=== PATIENT | male | born 2000 | race Hispanic/Latino ===

== ENCOUNTER 2024-02-13 16:47 | Emergency (ER) | payer OTHER, SELFPAY ==
[2024-02-13 16:57] VITALS: BP 115/61; PULSE 105; RESP 18; TEMP 38.6; O2SAT 99; BMI 25.0
[2024-02-13 17:11] VITALS: TEMP 38.3
[2024-02-13] MEDS: ACETAMINOPHEN 325 MG TABLET 975 MG PO (17:11)
[2024-02-13 17:23] LABS: Strep Grp A by PCR Rapid Negative (Negative)
--- NOTE | 2024-02-13 17:33 | ED.URI ---
HPI - URI/Sore Throat <Miranda Howard PA-C - Last Filed: 02/13/24 18:59> General Chief Complaint: Upper Respiratory Symptoms Stated Complaint: States swollen tonsils, unable to eat or drink Time Seen by Provider: 02/13/24 17:18 Source: patient Mode of arrival: Ambulatory History of Present Illness HPI Narrative: 23-year-old male presents to the ED with 5 days of sore throat, fever, nausea. Patient is also complaining of some back pain. Patient states he has frequent episodes of strep throat. Patient denies rhinorrhea, cough, chest pain, shortness of breath, vomiting, abdominal pain, lightheadedness, dizziness, syncope. Patient is controlling his secretions well. Related Data Previous Rx's Medication Instructions Recorded penicillin V potassium 500 mg 500 mg PO BID 10 days #20 tabs 02/13/24 tablet Allergies Allergy/AdvReac Type Severity Reaction Status Date / Time No Known Drug Allergies Allergy Verified 02/13/24 16:56 Review of Systems <Miranda Howard PA-C - Last Filed: 02/13/24 18:59> Constitutional Constitutional: Denies chills, Denies fatigue, Reports fever(s), Denies frequent falls, Denies lethargy and Denies weakness Eyes Eyes: Denies change in vision, Denies eye discharge, Denies irritation and Denies loss of vision ENT Ears, Nose, Mouth, and Throat: Denies change in voice, Denies dizziness, Denies neck pain, Reports sore throat and Denies throat swelling Cardiovascular Cardiovascular: Denies chest pain, Denies irregular heart rhythm, Denies lightheadedness, Denies palpitations, Denies dyspnea, Denies dyspnea on exertion and Denies orthopnea Respiratory Respiratory: Denies cough, Denies dyspnea, Denies dyspnea on exertion and Denies wheezing Gastrointestinal Gastrointestinal: Denies abdominal pain, Denies change in bowel habits, Denies diarrhea, Reports nausea and Denies vomiting Musculoskeletal Musculoskeletal: Reports back pain, Denies neck pain and Denies numbness Integumentary/Breasts Skin/Breast: Denies pruritus, Denies erythema, Denies rash and Denies wounds Neurologic Neurologic: Denies behavioral changes, Denies confusion, Denies dizziness, Denies frequent falls, Denies loss of vision, Denies numbness and Denies weakness Psychiatric Psychiatric: Denies anxiety, Denies behavioral changes, Denies confusion, Denies depression, Denies homicidal ideation and Denies suicidal ideation Endocrine Endocrine: Denies fatigue, Denies flushing and Denies palpitations Hematologic/Lymphatic Hematologic/Lymphatic: Denies easy bruising Allergic/Immunologic Allergic/Immunologic: Denies urticaria, Denies throat swelling and Denies wheezing Patient History <Miranda Howard PA-C - Last Filed: 02/13/24 18:59> Social History Smoking Status: Never smoker Smoking Status: Never smoker alcohol intake frequency: a few times a month Substance Use Type: does not use Exam <Miranda Howard PA-C - Last Filed: 02/13/24 18:59> Narrative Exam Narrative: Const General:?cooperative, healthy appearing and comfortable [facility] Head:?normal to inspection Ears:?hearing grossly normal bilaterally Nose:?external nose normal Face and sinus:?normal facial exam and sinuses nontender Mouth:?oral mucosae normal Throat:?posterior oropharynx erythematous, swollen, with exudates. Airway is still patent. Patient is managing his secretions well. Eyes General:?appearance normal, both eyes and all related structures Neck Neck:?normal visual inspection and no lymphadenopathy noted Resp Effort & Inspection:?normal respiratory effort Auscultation:?clear to auscultation bilaterally Cardio Rate:?regular rate Rhythm:?regular rhythm Neuro General:?patient alert, patient awake and patient oriented x3 Initial Vital Signs Initial Vital Signs: Vital Signs Temperature 101.5 F H 02/13/24 16:57 Pulse Rate 105 H 02/13/24 16:57 Respiratory Rate 18 02/13/24 16:57 Blood Pressure 115/61 02/13/24 16:57 Pulse Oximetry 99 02/13/24 16:57 Oxygen Delivery Method Room Air 02/13/24 16:57 <Shilpa Luevano DO - Last Filed: 02/16/24 08:59> Initial Vital Signs Initial Vital Signs: Vital Signs Temperature 101.5 F H 02/13/24 16:57 Pulse Rate 105 H 02/13/24 16:57 Respiratory Rate 18 02/13/24 16:57 Blood Pressure 115/61 02/13/24 16:57 Pulse Oximetry 99 02/13/24 16:57 Oxygen Delivery Method Room Air 02/13/24 16:57 Course <Miranda Howard PA-C - Last Filed: 02/13/24 18:59> Orders Ordered: Discontinued Medications Acetaminophen (Acetaminophen 325 Mg Tablet) 975 mg PO NOW ONE Stop: 02/13/24 17:05 Last Admin: 02/13/24 17:11 Dose: 975 mg Documented By: AMBREEN Dexamethasone (Dexamethasone 10 Mg/Ml Vial) 10 mg PO NOW ONE Stop: 02/13/24 17:31 Last Admin: 02/13/24 18:09 Dose: 10 mg Documented By: AMBREEN Ketorolac Tromethamine (Ketorolac 30 Mg/Ml Vial) 30 mg IM NOW ONE Stop: 02/13/24 17:23 Last Admin: 02/13/24 17:44 Dose: 30 mg Documented By: ELI Ondansetron HCl (Ondansetron 4 Mg Odt) 4 mg SL NOW ONE Stop: 02/13/24 17:23 Last Admin: 02/13/24 17:44 Dose: 4 mg Documented By: ELI Vital Signs Vital signs: Vital Signs - 8 hr 02/13/24 16:57 02/13/24 17:11 02/13/24 18:07 Temperature 101.5 F H 101 F H Pulse Rate 105 H 88 Respiratory Rate 18 14 Blood Pressure 115/61 115/61 Pulse Oximetry 99 94 Oxygen Delivery Method Room Air Room Air 02/13/24 18:13 02/13/24 18:51 Temperature 100.5 F H 99.9 F H Pulse Rate 89 Respiratory Rate 16 Blood Pressure 107/58 L Pulse Oximetry 97 Oxygen Delivery Method Room Air <Shilpa Luevano DO - Last Filed: 02/16/24 08:59> Orders Ordered: Discontinued Medications Acetaminophen (Acetaminophen 325 Mg Tablet) 975 mg PO NOW ONE Stop: 02/13/24 17:05 Last Admin: 02/13/24 17:11 Dose: 975 mg Documented By: AMBREEN Dexamethasone (Dexamethasone 10 Mg/Ml Vial) 10 mg PO NOW ONE Stop: 02/13/24 17:31 Last Admin: 02/13/24 18:09 Dose: 10 mg Documented By: AMBREEN Ketorolac Tromethamine (Ketorolac 30 Mg/Ml Vial) 30 mg IM NOW ONE Stop: 02/13/24 17:23 Last Admin: 02/13/24 17:44 Dose: 30 mg Documented By: ELI Ondansetron HCl (Ondansetron 4 Mg Odt) 4 mg SL NOW ONE Stop: 02/13/24 17:23 Last Admin: 02/13/24 17:44 Dose: 4 mg Documented By: ELI Vital Signs Vital signs: Vital Signs - 8 hr 02/13/24 16:57 02/13/24 17:11 02/13/24 18:07 Temperature 101.5 F H 101 F H Pulse Rate 105 H 88 Respiratory Rate 18 14 Blood Pressure 115/61 115/61 Pulse Oximetry 99 94 Oxygen Delivery Method Room Air Room Air 02/13/24 18:13 02/13/24 18:51 Temperature 100.5 F H 99.9 F H Pulse Rate 89 Respiratory Rate 16 Blood Pressure 107/58 L Pulse Oximetry 97 Oxygen Delivery Method Room Air MDM - URI/Sore Throat <Miranda Howard PA-C - Last Filed: 02/13/24 18:59> Lab Data Labs: Lab Results 02/13/24 02/13/24 Range/Units 17:06 17:28 Monoscreen Negative (Negative) Group A Strep (PCR) Negative (Negative) MDM Narrative Medical decision making narrative: 23-year-old male presents to the ED with 5 days of sore throat, fever, nausea. Concern for strep pharyngitis versus viral pharyngitis versus mono versus other. Obtained POC strep which was negative. Was sent for culture. Will treat symptoms with Toradol, Zofran, dexamethasone. Patient's symptoms improved with medications. Baldwin test was negative. Per Cent[facility] criteria, will treat empirically for strep pharyngitis. Discussed findings with patient. Prescribed penicillin. ED return precautions discussed with patient. Patient verbalized understanding. Medical records reviewed: Yes <Shilpa Luevano DO - Last Filed: 02/16/24 08:59> Lab Data Labs: Lab Results 02/13/24 02/13/24 Range/Units 17:06 17:28 Monoscreen Negative (Negative) Group A Strep (PCR) Negative (Negative) Discharge Plan Departure Patient Disposition: Home Clinical Impression: Strep pharyngitis Instructions: DI for Strep Throat Activity Restrictions/Additional Instructions: Were evaluated in the ED today for a sore throat. Your strep test in the ED was negative but we will send it for culture and further study. Your mono test was negative. Your physical exam and symptoms are most consistent with a strep infection. You are being started on antibiotics, which you should take for the next 10 days. You may also take Tylenol and ibuprofen for pain control. Please follow-up with your PCP as soon as possible. Return to the ED if you have worsening symptoms, throat swelling, trouble breathing. Prescriptions: New penicillin V potassium 500 mg tablet 500 mg PO BID 10 Days Qty: 20 0RF Referrals: ProviderSturat [Primary Care Provider] - Stand Alone Forms: Patient Portal/API, Work Release Note ED Sign-out <Shilpa Luevano DO - Last Filed: 02/16/24 08:59> Cosign ED Attending Xiomaraature Attestation: I was immediately available in the department for consultation.
[2024-02-13] MEDS: ONDANSETRON 4 MG ODT SL (17:44)
[2024-02-13] MEDS: KETOROLAC 30 MG/ML VIAL IM (17:44)
[2024-02-13 17:45] LABS: Monotest Negative (Negative)
[2024-02-13 18:07] VITALS: BP 115/61; PULSE 88; RESP 14; O2SAT 94
[2024-02-13] MEDS: DEXAMETHASONE 10 MG/ML VIAL PO (18:09)
[2024-02-13 18:13] VITALS: TEMP 38.1
[2024-02-13 18:51] VITALS: BP 107/58; PULSE 89; RESP 16; TEMP 37.7; O2SAT 97
== END 2024-02-13 18:53 | disposition home or self-care (01) ==
PROVIDERS: Emergency Provider Student in an Organized Health Care Education/Training Program
DX: J02.9 Acute pharyngitis, unspecified (principal)
CPT/HCPCS: 36415; 86318; 87070; 87651; 96372; 99283; 99284; J1100; J1885

== ENCOUNTER 2025-02-02 17:03 | Emergency (ER) | payer OTHER, SELFPAY ==
[2025-02-02 17:05] VITALS: BP 130/62; PULSE 72; RESP 16; TEMP 36.8; O2SAT 100; BMI 26.1
--- NOTE | 2025-02-02 17:09 | DI.RAD.S_ITS ---
PROCEDURE: XR CLAVICLE RT INDICATIONS: Fall onto arm, pain with raising TECHNIQUE: 2 views of the clavicle were acquired. COMPARISON: None. FINDINGS: Bones: No fractures or dislocations. No suspicious bony lesions. Soft tissues: No suspicious soft tissue calcifications. IMPRESSION: No acute bony abnormality. Dictated by: Katelin Cantor M.D. on 02/02/2025 at 16:41 Approved by: Katelin Cantor M.D. on 02/02/2025 at 16:43
--- NOTE | 2025-02-02 17:09 | DI.RAD.S_ITS ---
PROCEDURE: XR SHOULDER RT MIN 2V INDICATIONS: Fall onto arm, pain with raising TECHNIQUE: 3 views of the shoulder were acquired. COMPARISON: None. FINDINGS: Bones: No fractures or dislocations. No suspicious bony lesions. Visualized ribs appear intact. Soft tissues: No suspicious soft tissue calcifications. IMPRESSION: No acute bony abnormality. Dictated by: Katelin Cantor M.D. on 02/02/2025 at 16:43 Approved by: Katelin Cantor M.D. on 02/02/2025 at 16:43
[2025-02-02 17:24] VITALS: PULSE 70
--- NOTE | 2025-02-02 17:25 | ED_ITS ---
HPI - Extremity Injury (Upper) General Chief Complaint: Extremity Injury, Upper Stated Complaint: injured shoulder snowboarding Time Seen by Provider: 02/02/25 17:20 Source: patient Mode of arrival: Ambulatory History of Present Illness HPI narrative: Mr. Liang Santacruz is a pleasant 24-year-old male, right-hand dominant, with no reported past medical history who presents to the emergency department for right shoulder pain after a fall while snowboarding yesterday. Patient states that he was snowboarding, wearing a helmet, when he was attempting to get off the ski lift he had a fall forward landing on his right shoulder/arm region. States that he had some mild pain of the right shoulder afterwards but nothing significant so he continued snowboarding. States that later on in the night as he was in the car on the drive home, he noticed that his right shoulder was really starting to bother him, and it woke him up from sleep a few times last night. The pain is worse when he abducts his right shoulder. He denies any head trauma, head pain, loss of consciousness, neck pain, back pain, left arm pain, lower extremity pain. He took 2 Tylenol for the pain last night which did not resolve his symptoms. He denies any numbness tingling or weakness in the right arm. Related Data Allergies Allergy/AdvReac Type Severity Reaction Status Date / Time No Known Drug Allergies Allergy Verified 02/02/25 17:05 Review of Systems Review of Systems ROS Unobtainable: All systems reviewed & are unremarkable except as noted in HPI and below Patient History Social History Smoking Status: Never smoker Smoking Status: Never smoker alcohol intake frequency: a few times a month Exam Narrative Exam Narrative: GENERAL: 24 year old patient appears stated age. Well-developed patient, in no acute distress. HEAD: Atraumatic. Normocephalic. EYES:No scleral icterus. No injection or drainage. NECK: Trachea midline. Cervical ROM intact. CARDIOVASCULAR: Regular rate and rhythm. RESPIRATORY: ?Nonlabored respirations. ?Speaking in clear, full sentences. ?Clear to auscultation. Breath sounds equal bilaterally. No wheezes, rales, or rhonchi. ? EXTREMITIES: Mild tenderness to palpation of right anterolateral shoulder. There is significant pain in the right shoulder with abduction starting at just 15?, exacerbated at 90?. There are no obvious deformities and no tenderness to palpation of the clavicles. 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 No snuffbox tenderness bilaterally. BACK: Nontender without deformity or crepitance. NEURO: AOx3. ?Clear speech. SKIN: No rash or erythema of visible areas Initial Vital Signs Initial Vital Signs: Vital Signs Temperature 98.2 F 02/02/25 17:05 Pulse Rate 72 02/02/25 17:05 Respiratory Rate 16 02/02/25 17:05 Blood Pressure 130/62 02/02/25 17:05 Pulse Oximetry 100 02/02/25 17:05 Oxygen Delivery Method Room Air 02/02/25 17:05 Course Orders Ordered: ED Orders 02/02/25 17:09 XR clavicle RT Stat XR shoulder RT min 2V Stat Discontinued Medications Ketorolac Tromethamine (Ketorolac 30 Mg/Ml Vial) 30 mg IM NOW ONE Stop: 02/02/25 17:35 Last Admin: 02/02/25 17:39 Dose: 30 mg Documented By: TC Vital Signs Vital signs: Vital Signs - 8 hr 02/02/25 17:05 02/02/25 17:24 02/02/25 18:20 Temperature 98.2 F Pulse Rate 72 70 Pulse Rate [Right Radial] 70 Respiratory Rate 16 14 Blood Pressure 130/62 121/62 Pulse Oximetry 100 98 Oxygen Delivery Method Room Air Room Air 02/02/25 18:58 Temperature 98.6 F Pulse Rate Pulse Rate [Right Radial] Respiratory Rate Blood Pressure Pulse Oximetry Oxygen Delivery Method MDM - Extremity Injury (Upper) Medical Records Attestation: I reviewed the patient's medical records. Medical records narrative: ED visit for strep pharyngitis 02/13/2024. Imaging Data Right Shoulder X-Ray: Radiologist's Impression: PROCEDURE: XR SHOULDER RT MIN 2V INDICATIONS: Fall onto arm, pain with raising TECHNIQUE: 3 views of the shoulder were acquired. COMPARISON: None. FINDINGS: Bones: No fractures or dislocations. No suspicious bony lesions. Visualized ribs appear intact. Soft tissues: No suspicious soft tissue calcifications. IMPRESSION: No acute bony abnormality. Right Clavicle X-ray: Radiologist's Impression: PROCEDURE: XR CLAVICLE RT INDICATIONS: Fall onto arm, pain with raising TECHNIQUE: 2 views of the clavicle were acquired. COMPARISON: None. FINDINGS: Bones: No fractures or dislocations. No suspicious bony lesions. Soft tissues: No suspicious soft tissue calcifications. IMPRESSION: No acute bony abnormality. MDM Narrative Medical decision making narrative: 24-year-old male, right-hand dominant, with no reported past medical history who presents to the emergency department for right shoulder pain after a fall while snowboarding yesterday. Differential diagnosis includes but is not limited to right shoulder fracture, right clavicle fracture, shoulder strain, sprain, AC joint separation, etc. On exam the patient is in no acute distress, nontoxic appearing, vital signs within normal limits. He is mild tenderness to palpation of the anterolateral right shoulder, pain is most significant with abduction of the right shoulder. No neck pain or back pain, no head trauma. Bilateral arms are neurovascularly intact. X-ray of right shoulder and clavicle obtained in triage. We will treat with Toradol & sling for pain. X-rays reveal no fractures, no dislocations. Suspect soft tissue or ligament/tendon injury. Patient has improvement with pain after ED treatment. 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 Discussed supportive care, follow up with PCP/ortho. Discussed strict ED return precautions. He verbalized understanding all information is agreeable to the plan. Right arm is neurovascularly intact after placement of sling. He is stable for discharge home. Discharge Plan Departure Patient Disposition: Home Clinical Impression: Sprain of right shoulder Qualifiers: Encounter type: initial encounter Shoulder sprain type: unspecified sprain Qualified Code(s): S43.401A - Unspecified sprain of right shoulder joint, initial encounter Instructions: DI for Shoulder Sprain Activity Restrictions/Additional Instructions: Thank you for coming to the emergency department. Today you were evaluated for right shoulder pain after a snowboarding injury that occurred yesterday. X-ray of your right shoulder and your clavicle reveal no fractures or dislocations at this time. I am concerned that your pain could be related to a sprain or strain of the surrounding muscles of the right shoulder, an acromioclavicular joint injury, or rotator cuff injury. It is important to rest, wear the sling throughout the day (but making sure to take breaks to flex/extend your elbow), and [place]. If you have persistent pain, it is important to see an orthopedic doctor. You can call to schedule an appointment with [facility] at [phone]. Please provide your flight surgeon with the x-rays from today. Please use RICE therapy for your pain in addition to ibuprofen/acetaminophen. Rest the painful area. Ice the area of pain/swelling for at least 15 minutes, 4x a day. Compress the area of swelling using a brace, wrap, or splint if applied. Elevate the painful or swollen extremity by supporting it above the level of the heart with pillows when sitting or laying. Please take Ibuprofen (Motrin/Advil) or Acetaminophen (Tylenol) for pain. These are available over the counter. You may take Ibuprofen 600 mg every 8 hours with food for pain. You may also take Acetaminophen 650 mg every 4-6 hours for pain. Do not exceed 3000 mg of Tylenol a day as this can cause liver damage. Do not drink alcohol with either of these medications. Please follow up with your primary care doctor within the next 2-3 days for ER follow-up. (If you do not have a PCP you can call [phone]. ?to schedule an appointment with an [facility] Primary Care Provider) IF YOU DEVELOP ANY NEW OR WORSENING SYMPTOMS, RETURN TO THE ER! Please read the attached instructions, they highlight more specific treatments and interventions for you at home. Thank you for letting me participate in your care, Latosha Chaparro PA-C Referrals: ProviderStuart [Primary Care Provider] - Stand Alone Forms: Patient Portal/API/Survey, Work Release Note
[2025-02-02] MEDS: KETOROLAC 30 MG/ML VIAL IM (17:39)
[2025-02-02 18:20] VITALS: BP 121/62; PULSE 70; RESP 14; O2SAT 98
[2025-02-02 18:58] VITALS: TEMP 37
== END 2025-02-02 18:58 | disposition home or self-care (01) ==
PROVIDERS: Emergency Provider Physician Assistant
DX: S43.401A Unspecified sprain of right shoulder joint, initial encounter (principal); V98.3XXA Accident to, on or involving ski lift, initial encounter; Y93.23 Activity, snow (alpine) (downhill) skiing, snowboarding, sledding, tobogganing and snow tubing
CPT/HCPCS: 73000; 73030; 96372; 99283; 99284; J1885

== ENCOUNTER 2025-05-12 19:04 | Emergency (ER) | payer OTHER, SELFPAY ==
[2025-05-12 19:40] VITALS: BP 132/68; PULSE 71; RESP 18; TEMP 36.6; O2SAT 97; BMI 26.1
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
[2025-05-12 21:45] VITALS: BP 130/61; PULSE 64; RESP 16; TEMP 37.4; O2SAT 100
[2025-05-13] MEDS: ACETAMINOPHEN 325 MG TABLET PO (02:46)
[2025-05-13] MEDS: IBUPROFEN 400 MG TABLET PO (02:46)
[2025-05-13 02:49] VITALS: BP 141/69; PULSE 67; RESP 17; TEMP 36.6; O2SAT 98
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
[2025-05-13] MEDS: BACITRACIN OINT 0.9 GM PCKT 1 APPLIC TOP (05:50)
[2025-05-13] MEDS: OXYCODONE/APAP 5/325 PREPACK 1 BOTTLE MISC (05:50)
[2025-05-13 05:55] VITALS: BP 129/67; PULSE 61; RESP 14; O2SAT 100
--- NOTE | 2025-05-13 06:04 | PC.NURSE ---
abrasions to right lower leg, left knee and left lower arm cleaned wtih saline, bacitracin applied. telfa applied to right lower leg and leg wrapped with jacklyn bandage. band aid applied to left knee
== END 2025-05-13 06:06 | disposition home or self-care (01) ==
PROVIDERS: Emergency Provider Emergency Medicine
DX: S49.91XA Unspecified injury of right shoulder and upper arm, initial encounter (principal); S50.812A Abrasion of left forearm, initial encounter; S80.811A Abrasion, right lower leg, initial encounter; S29.9XXA Unspecified injury of thorax, initial encounter; V18.2XXA Unspecified pedal cyclist injured in noncollision transport accident in nontraffic accident, initial encounter
CPT/HCPCS: 71101; 73030; 99283